=== PATIENT | female | born 1970 | race Two or more races ===

== ENCOUNTER → 2016-04-05 | Day surgery (SDC) | payer BC, OTHER ==
[~2016-04-05] VITALS: Ht 149.9 cm; Wt 81.6 kg
[2016-04-05] VITALS (13 sets, daily range): BP systolic 92–128; BP diastolic 51–74
[~2016-04-05] MED LIST: CEFOXITIN SOD IVPB ONE; D5NS 1000ml IV ONE; D5W IVPB ONE; Dexamethasone 4mg/ml vial ONE; DiphenhydrAMINE 50mg/ml Inj IVP PRN; Ketorolac 30mg Inj ONE; LR 1000ml 1,000 ML IVLG SCH; LR 1000ml ONE; Labetalol 5mg/ml 20ml vial IV PRN; Meperidine 25mg/ml Inj IV PRN; Midazolam 2mg/2ml Inj ONE; NS Irrig 1000ml ONE; Propofol 10mg/ml 20ml IV ONE; Sterile Water Irrig 1000ml IRRIG ONE; TENORMIN25 MG ORAL; TRAZODONE HCL50 MG ORAL; ZANTAC150 MG ORAL; ePHEDrine 50mg/ml Inj ONE; fentaNYL 100 mcg/2 mL IV ONE
--- NOTE | 2016-04-05 07:35 | Anethesia Preoperative Eval ---
Anesthesia Pre-op PMH/ROS General Date of Evaluation: Apr 05, 2016 Time of Evaluation: 07:27 Anesthesiologist: Quirino ASA Score: ASA 2 Mallampati Score Class I : Soft palate, uvula, fauces, pillars visible Class II: Soft palate, uvula, fauces visible Class III: Soft palate, base of uvula visible Class IV: Only hard plate visible Mallampati Classification: Class II Surgeon: Enma Diagnosis: Uterine Polyp Surgical Procedure: D+C/Hysteroscopy Anesthesia History: none Family History: no anesthesia problems Allergies: Coded Allergies: No Known Allergies (Unverified , 04/04/16) Medications: see eMAR Past Medical History Cardiovascular: Reports: HTN, arrhythmia Pulmonary: Denies: COPD, TARAH, asthma, other Gastrointestinal/Genitourinary: Denies: CRI, ESRD, GERD, other Neurologic/Psychiatric: Denies: CVA, TIA, dementia, depression/anxiety, other Endocrine: Denies: DM, hypothyroidism, other, steroids HEENT: Denies: [place] (L), [place] (R), cataract (L), cataract (R), glaucoma, other Hematology/Immune: Denies: DVT, anemia, bleeding disorder, other Musculoskeletal/Integumentary: Denies: DDD, DJD, OA, RA, edema, other Other: obesity PMH Narrative: HTN,hx of SVT, obesity PSxH Narrative: c/s x 4, appendectomy Anesthesia Pre-op Phys. Exam Physician Exam Last Vital Signs Date Time Temp Pulse Resp B/P Pulse Ox O2 Delivery O2 Flow Rate FiO2 04/05/16 06:25 98.5 61 18 109/74 96 Room Air Constitutional: NAD Neurologic: CN 2-12 intact Cardiovascular: RRR Respiratory: CTA Gastrointestinal: S/NT/ND Airway Exam Mallampati Score: Class II MO: full ROM: full Teeth: intact Dentures: no lower, no upper Anesthesia Pre-op A/P Labs Urine Test Test 04/05/16 06:05 Urine HCG, Qualitative Negative JEFFY RICE D.O. Apr 05, 2016 07:35
--- NOTE | 2016-04-05 07:49 | Pre-Procedure Note/Attestation ---
Pre-Procedure Note/Attestation Complete Prior to Procedure Planned Procedure: not applicable Procedure Narrative: D&C, Hysteroscopy, possible polypectomy Indications for Procedure Pre-Operative Diagnosis: Endometrial polyp, menorrhagia Attestation I attest that I discussed the nature of the procedure; its benefits; risks and complications; and alternatives (and the risks and benefits of such alternatives ), prior to the procedure, with the patient (or the patient's legal account maintenance representative). I attest that, if there was a reasonable possibility of needing a blood transfusion, the patient (or the patient's legal account maintenance representative) was given the [facility] standardized written summary, pursuant to the Nnamdi Mcconnell Blood Safety Act ([place] Health and Safety Code # 1645, as amended). I attest that I re-evaluated the patient just prior to the surgery and that there has been no change in the patient's H&P, except as documented below:NONE VERONIQUE NAVARRO Apr 05, 2016 07:49
--- NOTE | 2016-04-05 08:45 | Brief Operative Note ---
Immediate Post Operative Note Operative Note Pre-op Diagnosis: Endometrial polyp, menorrhagia Procedure: D&C, Hysteroscopy, Polypectomy Post-op Diagnosis: same as pre-op Findings: consistent w/pre-op dx studies Surgeon: Veronique Navarro MD [place]: None Anesthesia: general Specimen: yes - ECC, EMC, Endometrial Polyp Complications: none Condition: stable Fluids: IVF Estimated Blood Loss: none Drains: none Implant(s) used?: No VERONIQUE NAVARRO Apr 05, 2016 08:45
--- NOTE | 2016-04-05 08:45 | Immediate Post-Op Evaluation ---
Immediate Post-Op Evalulation Immediate Post-Op Evalulation Procedure: D+C hysterscopy Date of Evaluation: Apr 05, 2016 Time of Evaluation: 08:42 IV Fluids: 700ml Blood Products: none Estimated Blood Loss: minimal Urinary Output: due to void Blood Pressure Systolic: 125 Blood Pressure Diastolic: 58 Pulse Rate: 55 Respiratory Rate: 16 O2 Sat by Pulse Oximetry: 100 Temperature (Fahrenheit): 97 Pain Score (1-10): 2 Nausea: No Vomiting: No Complications none Patient Status: awake, reacts Hydration Status: adequate Drug: n/a JEFFY RICE D.O. Apr 05, 2016 08:45
[2016-04-05] MEDS: fentaNYL 100 mcg/2 mL IV PRN ×2 (08:52→09:20)
--- NOTE | 2016-04-05 08:53 | 48 Hour Post Anesthesia Eval ---
Post Anesthesia Evaluation Procedure: D+C hysterscopy polypectomy Date of Evaluation: Apr 05, 2016 Time of Evaluation: 08:52 Blood Pressure Systolic: 99 0: 57 Pulse Rate: 55 Respiratory Rate: 16 Temperature (Fahrenheit): 97 O2 Sat by Pulse Oximetry: 100 Airway: patent Nausea: No Vomiting: No Pain Intensity: 0 Hydration Status: adequate Cardiopulmonary Status: stable Mental Status/LOC: patient returned to baseline Follow-up Care/Observations: as per surgeon Post-Anesthesia Complications: none Follow-up care needed: N/A JEFFY RICE D.O. Apr 05, 2016 08:53
--- NOTE | 2016-04-05 15:18 | Operative Note - Dictated ---
DATE OF OPERATION: 04/05/2016 PREOPERATIVE DIAGNOSIS: Endometrial polyp and menorrhagia. POSTOPERATIVE DIAGNOSIS: Endometrial polyp and menorrhagia. PROCEDURE PERFORMED: 1. Dilatation and curettage. 2. Hysteroscopy. 3. Endometrial polypectomy. SURGEON: Tanvir Norwood M.D. ANESTHESIA: General endotracheal. ANESTHESIOLOGIST: Dr. Thomas Win. ANESTHESIA: General. PROCEDURE IN DETAIL: After all the appropriate consents were signed, the patient was brought to the operating room, and placed on table in supine position. General anesthesia was induced without complication. The patient was then placed in dorsal lithotomy position. Perineum, vagina, and abdomen prepped and draped in the usual fashion. In and out Green catheter was placed. The procedure then continued with identifying the cervix and cervical os was dilated to 7 mm Hegar. The video hysteroscope was then placed and the uterine cavity was visualized. Cavity revealed a polypoid lesion in the fundal area of the uterus. The procedure then continued with using polyp forceps. After direct visualization, the polyp was grasped and traction countertraction applied to fully remove the polyp in multiple pieces. The procedure then continued with ascertaining that the polyp was fully removed and then endocervical curettage was performed followed by endometrial curettage. The patient now once again evaluated. The cervix was hemostatic. The cervical tenaculum was removed and after the hemostasis was noted the patient was then placed in the supine position. She was brought to the recovery room after being awakened from general anesthesia. She tolerated the procedure very well. Tanvir Norwood M.D. DR: Amanda JOB#: [id number] CC:
== END | disposition home or self-care (01) ==
LOC: SUR 05:59
DX: N84.0 Polyp of corpus uteri (principal); N92.0 Excessive and frequent menstruation with regular cycle; N71.1 Chronic inflammatory disease of uterus; F32.9 Major depressive disorder, single episode, unspecified; G47.8 Other sleep disorders; I10 Essential (primary) hypertension; I47.1 Supraventricular tachycardia; K76.0 Fatty (change of) liver, not elsewhere classified; E78.5 Hyperlipidemia, unspecified; M19.90 Unspecified osteoarthritis, unspecified site; E66.9 Obesity, unspecified; Z68.35 Body mass index [BMI] 35.0-35.9, adult; G89.29 Other chronic pain; M54.5 Low back pain; H93.19 Tinnitus, unspecified ear; Z90.49 Acquired absence of other specified parts of digestive tract
CPT/HCPCS: 81025; 94003; 94150; J2250; J2405